=== PATIENT | male | born 1945 | race Caucasian/White ===

== ENCOUNTER 2020-12-09 04:26 | Emergency (ER) | payer MEDICARE, SELFPAY ==
[2020-12-09] VITALS (8 sets, daily range): BP systolic 113–185; BP diastolic 68–84; PULSE 59–93; RESP 16–18; TEMP 36.9; O2SAT 93–99; BMI 27.1
--- NOTE | 2020-12-09 04:34 | EKG12_ITS ---
Test Reason : CP Blood Pressure : / mmHG Vent. Rate : 074 BPM Atrial Rate : 074 BPM P-R Int : 156 ms QRS Dur : 086 ms QT Int : 352 ms P-R-T Axes : 023 -21 010 degrees QTc Int : 390 ms Normal sinus rhythm Normal ECG Confirmed by AL CANTRELL, ESTELA ([id number]), research editor CAROLINA LOZA ([id number]) on 12/11/2020 11:14:25 AM Referred By: REMEDIOS Confirmed By:ESTELA MELENDEZ MD
--- NOTE | 2020-12-09 04:34 | RAD_ITS ---
STUDY: X-RAY CHEST REASON FOR EXAM: Male, 75 years old. chest pain TECHNIQUE: AP portable chest. COMPARISON: None. FINDINGS: Right lung is hypoinflated. Mildly elevated right hemidiaphragm. Normal size heart. Normal mediastinum and alison. Normal visualized pulmonary arteries. Normal visualized aortic arch and descending thoracic aorta. Normal visualized thoracic spine. Old left upper posterior rib fracture. There is no demonstrated abnormality of the visualized soft tissue structures of the upper abdomen. RAD/Chest 1 View (Portable) IMPRESSION: Hypoinflation of the right lung. No acute cardiopulmonary disease. Electronically Signed: Mau Ayala MD at 5:49 EDT , Service support ,
--- NOTE | 2020-12-09 04:46 | ED.VIS.CHEST ---
History of Present Illness Chief Complaint: Chest Pain Informant: Patient Onset: Yesterday Activity at onset: Rest Timing: Continuous Quality: Aching Location: Substernal Worsened By: Nothing Relieved By: Nothing Narrative: Patient is a 75-year-old male with history of hypertension, hyperlipidemia, psoriatic arthritis (on Humira) and coronary artery disease presenting with chest pain. Patient states around noon yesterday, that 16 hours prior to arrival he developed pain in the center of his chest that radiates into the back of his neck and his back. Been constant. He describes as aching in nature. He feels that he needs to cough when he takes a deep breath. He could not sleep tonight which is what ultimately brought to the emergency room. He denies any associated nausea, vomiting, abdominal pain, leg swelling, fever or chills. He takes an 81 mg aspirin. He denies any history of DVT or PE. He is received both Covid vaccines with his last 1 month ago. Patient had 1 stent placed in 2004 and 2 more stents placed in 2011. He is unsure if he felt like this when he had his stents. No other complaints at this time. No reported sick contacts. Past Medical History - Allergies and Home Meds Allergies/Adverse Reactions: Allergies No Known Allergies Allergy (Verified 12/09/20 04:34) Primary Care Physician: Mendoza Reese MD [Primary Care Provider] - Past Medical History: - - Psoriatic arthritis, hypertension, hyperlipidemia, coronary artery disease Surgical History: - - Cardiac stents Lives: Spouse/ Significant Other Smoking Status: Former smoker Review of Systems General: Denies: Chills, Fever, Sweats Eyes: Denies: Visual changes - bilaterally, Diplopia ENT: Denies: Rhinorrhea, Sore throat Cardiovascular: Reports: Chest pain. Denies: Palpitations Respiratory: Denies: Dyspnea, Cough, Dyspnea on exertion Gastrointestinal: Denies: Abdominal pain, Nausea, Vomiting, Diarrhea, Melena, Hematochezia Genitourinary: Denies: Dysuria, Hematuria, Frequency Musculoskeletal: Reports: Neck pain, Back pain. Denies: Extremity Pain Skin: Denies: Rash, Wounds Neurological: Denies: Headache, Weakness, Numbness Physical Exam Vital Signs/Narrative: Vital Signs Temp Pulse Resp BP Pulse Ox 12/09/20 04:37 96 12/09/20 04:27 98.5 F 78 16 185/84 H 95 Inital Vital Signs reviewed: Yes General: Well nourished, Well developed, No Acute Distress Head: Normocephalic, Atraumatic Eyes: Perrl, EOMI ENT: Moist mucous membranes, No rhinorrhea Neck: Supple, Nontender, No JVD Cardiovascular: Regular rate, Regular rhythm, No murmurs, - - Equal pulses in all 4 extremities Respiratory: No distress, Chest nontender, - - Bibasilar crackles present Abdomen: Soft, Nontender, Nondistended, Normal bowel sounds Back: Nontender, Normal Inspection Extremities: Nontender, No edema Skin: Normal color, No rash Neurological: Alert, Oriented x3, Cranial nerves II-XII grossly intact, Normal Strength, Normal Sensation Psychological: Normal affect, Normal Mood Diagnostic/Tx/Re-eval Chest X-Ray - ED: 1 View, Read by ED Physician, Read by Radiologist, No Acute Disease CTA PE Study: No Evidence of PE Clinical Impression(s) from Imaging Studies Chest X-Ray 12/09/20 04:34 IMPRESSION: Hypoinflation of the right lung. No acute cardiopulmonary disease. Electronically Signed: Mau Ayala MD at 5:49 EDT , Service support , Chest CTA 12/09/20 05:00 IMPRESSION: No pulmonary embolism or arterial dissection. Hypoinflation. Chronic lung changes. Small hiatal hernia. Electronically Signed: Mau Ayala MD at 6:55 EDT , Service support , Laboratory Data 12/09/20 12/09/20 12/09/20 04:30 04:30 04:30 WBC 11.0 RBC 4.53 L Hgb 15.1 Hct 45.5 MCV 100.4 H MCH 33.3 H MCHC 33.2 RDW Std Deviation 51.5 H RDW Coeff of Akilah 13.8 Plt Count 168 MPV 10.2 Immature Gran % (Auto) 0.400 Neut % (Auto) 69.7 Lymph % (Auto) 12.1 L Gilliam % (Auto) 14.6 H Eos % (Auto) 2.8 Baso % (Auto) 0.4 Absolute Neuts (auto) 7.7 Absolute Lymphs (auto) 1.33 Nucleated RBC % 0 Differential Comment SCANNED D-Dimer Quant (PE/DVT) 1.22 H* Sodium 136 Potassium 3.7 Chloride 104 Carbon Dioxide 27.0 Anion Gap 5 BUN 17 Creatinine 1.07 Estim Creat Clear Calc 50.72 Est GFR (MDRD) Af Amer 87 Est GFR (MDRD) Non-Af 72 BUN/Creatinine Ratio 15.9 Glucose 137 H Calcium 9.3 Troponin I < 0.015 B-Natriuretic Peptide Lipase 12/09/20 12/09/20 04:30 04:30 WBC RBC Hgb Hct MCV MCH MCHC RDW Std Deviation RDW Coeff of Aiklah Plt Count MPV Immature Gran % (Auto) Neut % (Auto) Lymph % (Auto) Gilliam % (Auto) Eos % (Auto) Baso % (Auto) Absolute Neuts (auto) Absolute Lymphs (auto) Nucleated RBC % Differential Comment D-Dimer Quant (PE/DVT) Sodium Potassium Chloride Carbon Dioxide Anion Gap BUN Creatinine Estim Creat Clear Calc Est GFR (MDRD) Af Amer Est GFR (MDRD) Non-Af BUN/Creatinine Ratio Glucose Calcium Troponin I B-Natriuretic Peptide 170.0 H Lipase 182 - Rhythm Strip Rhythm Strip: Sinus Rhythm Rate: 74 Ectopy: None - EKG Initial EKG Interpretation: Sinus Rhythm, - - Normal sinus rhythm rate of 74 Left axis deviation Normal intervals Normal ST segments No change prior to prior EKG on 11/01/08 Treatment: NTG SL, Toradol IV - Medical Decision Making Patient is evaluated for constant chest pain that radiates to his back. Is been present for over 12 hours. He appears nontoxic but uncomfortable secondary to pain.EKG does not show any acute ischemic process. Does seem to be a pleuritic component to it. PE study is performed after positive D-dimer. This is negative for any acute process. Initial troponin is negative. Patient's lab work is otherwise unremarkable. Chest x-ray does not show any acute process patient is given nitroglycerin with no improvement of his pain. He is then given Toradol to see if this will help with his pain. Patient does have a history of acid reflux/GERD but states this does not feel like this. Delta troponin is pending. Patient signed out to oncoming provider pending delta troponin results and final disposition. Patient's pain is atypical for ACS as has been constant as negative troponin as well as no acute EKG changes. ED Disposition - Plan for ED Patient: Diagnosis: Chest pain Referrals: Mendoza Reese MD [Primary Care Provider] -
[2020-12-09 04:49] LABS: Absolute Lymphocyte Count 1.33 X10^3/uL (0.83-4.51); Absolute Neutrophil Count 7.7 X10^3/uL (2.0-7.7); Basophil# 0.04 X10^3/uL; Basophil% 0.4 % (0-1); Eosinophil# 0.31 X10^3/uL; Eosinophils% 2.8 % (0-5); Hematocrit 45.5 % (40-54); Hemoglobin 15.1 g/dL (13.0-16.5); Lymphocyte # 1.33 X10^3/ul (4.0); Lymphocyte % 12.1 % (19-41); Mean Corp Hgb Conc 33.2 g/dL (32-36); Mean Corpuscular Hgb 33.3 pg (27.0-32.0); Mean Corpuscular Volume 100.4 fL (80-94); Mean Platelet Vol. 10.2 fl (6.2-12.0); Monocyte# 1.61 X10^3/uL; Monocyte% 14.6 % (0-10); NRBC Flagged by Analyzer 0 % (0-5); Neutrophil # 7.68 X10^3/uL (2.7-7.7); Neutrophil % 69.7 % (47-70); POSITIVE DIFFERENTIAL YES; Platelet Count 168 K/mm3 (150-450); RBC Distribution Width CV 13.8 % (11.6-14.6); RBC Distribution Width SD 51.5 fl (35.1-43.9); Red Blood Count 4.53 M/mm3 (4.6-6.2)
[2020-12-09 04:51] LABS: Differential Indicated SCAN CRITERIA MET
[2020-12-09] MEDS: Nitroglycerin SL (ED/IMG/CATH) 0.4 MG TABLET SL ×3 (04:55→05:05)
[2020-12-09] MEDS: Aspirin 81 MG TAB.CHEW 324 MG PO (04:55)
[2020-12-09 04:57] LABS: Anion Gap 5 (5-15); BUN 17 mg/dL (7-18); BUN/Creat Ratio 15.9 RATIO (10-20); Calcium,Total 9.3 mg/dL (8.5-10.1); Chloride 104 mmol/L (98-107); Creatinine, Serum 1.07 mg/dL (0.70-1.30); D-Dimer Quantitative (DVT/PE) 1.22 FEU/ug/m (0.27-0.49); EST Glomerular Filtration Rate 72 mL/min (>60); Est Glom Filt Rate - Afr Amer 87 mL/min (>60); Estimated Creatinine Clearance 50.72 ml/min; Glucose 137 mg/dL (74-106); Potassium 3.7 mmol/L (3.5-5.1); Sodium Level 136 mmol/L (136-145)
--- NOTE | 2020-12-09 04:59 | ED.RN ---
d-dimer 1.22 dr notified
--- NOTE | 2020-12-09 05:00 | CT_ITS ---
STUDY: CTA CHEST REASON FOR EXAM: Male, 75 years old. chest pain, elevated dimer RADIATION DOSAGE (If Supplied By Facility): CTDIvol = ( 8.81 ) mGy, DLP = ( 448.93 ) mGycm TECHNIQUE: The examination was performed with the intravenous administration of IV 100mL [id number]-300. Post-processing of the angiographic images was performed, with multiplanar reformation and 3D reconstruction. Individualized dose optimization techniques were used for this CT. COMPARISON: Chest x-ray December 09, 2020. FINDINGS: Normal enhancement of the main pulmonary artery and right and left pulmonary arteries. Normal enhancement of the bilateral peripheral pulmonary arteries. There is no demonstrated pulmonary embolism. Normal thoracic aorta and visualized great vessels. There is no demonstrated aortic dissection. The heart is not enlarged. Coronary artery calcifications. No pericardial effusion. Normal mediastinum. Normal hilar regions. Small hiatal hernia. Normal visualized trachea and bronchi. Lungs are hypoinflated. No focal airspace consolidation or pleural effusions. Scattered areas of fibrosis. Normal chest wall structures. Normal osseous structures. Normal visualized upper abdomen. CT/CTA Chest W/WO Contrast IMPRESSION: No pulmonary embolism or arterial dissection. Hypoinflation. Chronic lung changes. Small hiatal hernia. Electronically Signed: Mau Ayala MD at 6:55 EDT , Service support ,
[2020-12-09 05:01] LABS: Lipase 182 U/L (73-393)
[2020-12-09 05:19] LABS: Differential Comment SCANNED
[2020-12-09] MEDS: Ketorolac 15 MG/ML Vial IV (07:42)
--- NOTE | 2020-12-09 08:22 | ED.DEP ---
ED Disposition - Plan for ED Patient: Diagnosis: Chest pain Instructions: ED Chest Pain, Uncertain Cause Referrals: Mendoza Reese MD [Primary Care Provider] -
== END 2020-12-09 09:10 | disposition home or self-care (01) ==
PROVIDERS: Emergency Medicine; Emergency Provider Emergency Medicine; PCP Internal Medicine
DX: R07.9 Chest pain, unspecified (principal); I25.10 Atherosclerotic heart disease of native coronary artery without angina pectoris; E78.5 Hyperlipidemia, unspecified; I10 Essential (primary) hypertension; L40.50 Arthropathic psoriasis, unspecified; Z79.899 Other long term (current) drug therapy; Z87.891 Personal history of nicotine dependence; Z95.5 Presence of coronary angioplasty implant and graft
CPT/HCPCS: 71045; 71275; 80048; 83690; 83880; 84484; 85025; 85379; 93005; 96374; 99285; Q9967; A4216